=== PATIENT | female | born 1945 | race Caucasian/White ===

== ENCOUNTER 2021-05-09 09:48 | Emergency (ER) | payer MEDICARE, SELFPAY ==
[2021-05-09 10:05] VITALS: BP 166/80; PULSE 88; RESP 14; TEMP 36.1; O2SAT 99; BMI 24.1
--- NOTE | 2021-05-09 11:26 | DI.RAD.S_ITS ---
PROCEDURE: XR FINGER LT MIN 2V INDICATIONS: fall TECHNIQUE: AP hand, 2 views of the 4th finger(s) acquired. COMPARISON: None. FINDINGS: Bones: There is a nondisplaced lucency at the articular surface at the base of the proximal 4th phalanx seen only on lateral view. Prominent 1st CMC arthritic narrowing is present. Moderate scattered IP narrowing is present. Soft tissues: No suspicious soft tissue calcifications. IMPRESSION: Nondisplaced lucency at the articular surface at the proximal 4th phalanx. This is suspected to represent an overlapping soft tissue shadow. However, given history of trauma, recommend follow-up imaging in 7-10 days to exclude possibility of underlying fracture. Dictated by: Maryse Mccormick M.D. on 05/09/2021 at 13:50 Approved by: Maryse Mccormick M.D. on 05/09/2021 at 13:53
--- NOTE | 2021-05-09 12:41 | ED_ITS ---
HPI - Fall <Gonzalo Monzon PA-C - Last Filed: 05/09/21 15:41> General Chief Complaint: Fall Stated Complaint: Fall, Bump on Head Time Seen by Provider: 05/09/21 12:07 Source: patient Mode of arrival: Wheelchair History of Present Illness HPI Narrative: Patient is a 75-year-old female presenting to the emergency department today for evaluation of a ground level mechanical fall that occurred today. Patient states that she ?tripped over her own two feet striking the left side of her forehead in injuring her left and right hand. Patient denies feeling dizzy or lightheaded prior to fall and she denies loss of consciousness as a result of the fall. Of note, patient denies being anticoagulated daily. Patient denies feeling confused, dizziness, changes in vision, numbness or tingling in the extremities, nausea, abdominal pain. No further concerns voiced at this time. Related Data Allergies Allergy/AdvReac Type Severity Reaction Status Date / Time carbamazepine [From Tegretol] Allergy Verified 05/09/21 10:05 Review of Systems <Gonzalo Monzon PA-C - Last Filed: 05/09/21 15:41> Constitutional Constitutional: Denies chills, Denies fever(s), Denies frequent falls, Denies lethargy and Denies weakness Eyes Eyes: Denies change in vision, Denies eye discharge, Denies irritation and Denies loss of vision ENT Ears, Nose, Mouth, and Throat: Denies dizziness Cardiovascular Cardiovascular: Denies chest pain, Denies irregular heart rhythm, Denies lightheadedness, Denies palpitations, Denies dyspnea, Denies dyspnea on exertion and Denies orthopnea Respiratory Respiratory: Denies cough, Denies dyspnea, Denies dyspnea on exertion and Denies wheezing Gastrointestinal Gastrointestinal: Denies abdominal pain, Denies change in bowel habits, Denies diarrhea, Denies nausea and Denies vomiting Musculoskeletal Musculoskeletal: Denies numbness and Reports other (Pain at the base of right thumb) Integumentary/Breasts Skin/Breast: Denies pruritus, Denies erythema, Denies rash and Reports wounds (Abrasion to the dorsal aspect of the right hand) Neurologic Neurologic: Denies behavioral changes, Denies confusion, Denies dizziness, Denies frequent falls, Denies loss of vision, Denies numbness and Denies weakness Psychiatric Psychiatric: Denies behavioral changes and Denies confusion Endocrine Endocrine: Denies palpitations Hematologic/Lymphatic Hematologic/Lymphatic: Denies easy bruising Allergic/Immunologic Allergic/Immunologic: Denies wheezing Patient History <Gonzalo Monzon PA-C - Last Filed: 05/09/21 15:41> Social History Smoking Status: Current every day smoker Smoking Status: Current every day smoker alcohol intake frequency: holidays/special occasions only Substance Use Type: does not use Exam <Gonzalo Monzon PA-C - Last Filed: 05/09/21 15:41> Narrative Exam Narrative: GENERAL: 75 year old patient appears stated age. Well-developed patient, in mild distress. HEAD: Swelling and ecchymosis on the left side of the forehead superolateral to the left eyebrow with tenderness to palpation. EYES: Pupils equal round and reactive. Extraocular motions intact. No scleral icterus. No injection or drainage. ENT: Nose without bleeding, purulent drainage. Throat without erythema, tonsillar hypertrophy or exudate. Airway patent. NECK: Trachea midline. Non tender CARDIOVASCULAR: Regular rate and rhythm without murmurs, gallops, or rubs. RESPIRATORY: Clear to auscultation. Breath sounds equal bilaterally. No wheezes, rales, or rhonchi. GASTROINTESTINAL: Abdomen soft, non-tender, nondistended. EXTREMITIES: No edema or joint tenderness. No anatomical snuffbox tenderness bilaterally. Tenderness to palpation along the thenar eminence of the right hand. Tenderness to palpation appreciated along the distal 2nd left metacarpal. BACK: Nontender without deformity or crepitance. No flank tenderness. NEURO: AOx3. Neurovascularly intact. Sensation appreciated throughout the extremities. SKIN: No rash or erythema of visible areas Initial Vital Signs Initial Vital Signs: Vital Signs Temperature 97.0 F L 05/09/21 10:05 Pulse Rate 88 05/09/21 10:05 Respiratory Rate 14 05/09/21 10:05 Blood Pressure 166/80 H 05/09/21 10:05 Pulse Oximetry 99 05/09/21 10:05 <Steffanie Perez DO - Last Filed: 05/09/21 19:37> Initial Vital Signs Initial Vital Signs: Vital Signs Temperature 97.0 F L 05/09/21 10:05 Pulse Rate 88 05/09/21 10:05 Respiratory Rate 14 05/09/21 10:05 Blood Pressure 166/80 H 05/09/21 10:05 Pulse Oximetry 99 05/09/21 10:05 Course <Gonzalo Monzon PA-C - Last Filed: 05/09/21 15:41> Course Course Narrative: Patient is a 75-year-old female presenting to the emergency department today for evaluation of a ground level mechanical fall that occurred today. Awaiting results of x-ray of right hand. Orders Ordered: ED Orders 05/09/21 11:26 XR finger LT min 2V Stat Vital Signs Vital signs: Vital Signs - 8 hr 05/09/21 14:04 Pulse Rate 75 Respiratory Rate 18 Blood Pressure 128/71 Pulse Oximetry 100 <Steffanie Perez DO - Last Filed: 05/09/21 19:37> Orders Ordered: ED Orders 05/09/21 11:26 XR finger LT min 2V Stat Vital Signs Vital signs: Vital Signs - 8 hr 05/09/21 14:04 Pulse Rate 75 Respiratory Rate 18 Blood Pressure 128/71 Pulse Oximetry 100 MDM - Fall <Gonzalo Monzon PA-C - Last Filed: 05/09/21 15:41> Imaging Data Extremity x-ray #1: Radiologist's Impression: PROCEDURE:? XR FINGER LT MIN 2V ? INDICATIONS:? fall ? TECHNIQUE:? AP hand, 2 views of the 4th finger(s) acquired.? ? COMPARISON:? None. ? FINDINGS:? ? Bones:? There is a nondisplaced lucency at the articular surface at the base of the proximal 4th phalanx seen only on lateral view.? Prominent 1st CMC arthritic narrowing is present.? Moderate scattered IP narrowing is present. ? Soft tissues:? No suspicious soft tissue calcifications.? ? IMPRESSION:? Nondisplaced lucency at the articular surface at the proximal 4th phalanx.? This is suspected to represent an overlapping soft tissue shadow.? However, given history of trauma, recommend follow-up imaging in 7-10 days to exclude possibility of underlying fracture.? ? ? Dictated by: Maryse Mccormick M.D. on 05/09/2021 at 13:50 ? ? Approved by: Maryse Mccormick M.D. on 05/09/2021 at 13:53 ? MDM Narrative Medical decision making narrative: Patient is a 75-year-old female presenting to the emergency department today for evaluation of a ground level mechanical fall that occurred today. To consider forehead contusion versus fracture versus dislocation versus intracranial bleed. Exam is reassuring as the patient is neurovascularly intact and does not display any neuro deficits. Additionally, patient states that she is feeling well overall and notes that her pain in her hands bilaterally has been improving gradually. She states that she is looking forward to going home. Discussed with patient the option of ordering a CT of the head, but she states that she is feeling fine and does not feel that it is necessary. Considering that the patient is not anticoagulated daily and her exam is reassurng there is low suspicion for an intracranial bleed at this time. X- ray results were reviewed with the patient. At this time she does not want her left 4th digit splinted and she would prefer to not have her right hand x-rayed. I have discussed with patient the need to return to the ER if her pain worsens in either hands. Strict return precautions reviewed with patient prior to discharge. Discharge Plan Departure Patient Disposition: Home Clinical Impression: Finger fracture, left Qualifiers: Encounter type: initial encounter Finger: ring finger Fracture type: closed Phalanx: unspecified phalanx Fracture alignment: nondisplaced Qualified Code(s): S62.605A - Fracture of unspecified phalanx of left ring finger, initial encounter for closed fracture Instructions: DI for Finger Fracture Activity Restrictions/Additional Instructions: *You have been diagnosed with left 4th digit fracture *What to do: *Please continue to take your regular medications as directed. [ ] New medication prescriptions sent to your pharmacy: [ ] [ ] New medication written as a paper prescription [X] No new medications given *Please follow up with your primary care provider in 2-3 days, call for an appointment. Let them know you were seen in the Emergency Department and that we ask that you be seen in follow up. We will electronically transmit a record of today's note if your PCP is in our system *If you do not have a primary care provider please contact the [facility] Resource line at [phone]. They will ask some questions about your medical history and help get you set up with a doctor in the community. *Return to Emergency Department if you should have any new, worsening or concerning symptoms, such as fever greater than 101 F, shaking chills, worsening pain, dizziness, changes in vision, changes in speech, gait abnormalities, persistent vomiting, or other bothersome symptoms. Referrals: Dalia Blanco MD [Primary Care Provider] - <Steffanie Perez DO - Last Filed: 05/09/21 19:37> Cosign ED Attending [place] Attestation: I was immediately available in the department for consultation. Documentation has been reviewed. Patient case was discussed length in imaging was reviewed.
[2021-05-09 14:04] VITALS: BP 128/71; PULSE 75; RESP 18; O2SAT 100
== END 2021-05-09 14:10 | disposition home or self-care (01) ==
PROVIDERS: Emergency Provider Physician Assistant; PCP Family Medicine
DX: S62.605A Fracture of unspecified phalanx of left ring finger, initial encounter for closed fracture (principal); W19.XXXA Unspecified fall, initial encounter
CPT/HCPCS: 73140; 99283